=== PATIENT | female | born 1970 | race Caucasian/White ===

== ENCOUNTER 2019-05-03 15:40 | Emergency (ER) | payer SELFPAY ==
[~2019-05-03] VITALS: Ht 165.1 cm; Wt 68.0 kg
[2019-05-03 15:42] VITALS: BP 123/77; PULSE 75; RESP 20; Ht 165.1 cm; Wt 68.0 kg
[2019-05-03] MEDS ORDERED: SOD CHLORIDE 0.9% 1,000 ML IV STA (17:14)
== END 2019-05-03 17:21 | disposition left against medical advice (07) ==
LOC: E/R 15:40
DX: Z53.21 Procedure and treatment not carried out due to patient leaving prior to being seen by health care provider (principal)
CPT/HCPCS: J7030